=== PATIENT | male | born 1985 | race Two or more races ===

== ENCOUNTER 2016-10-30 22:48 | Inpatient (IN) | payer OTHER, MEDICAID ==
--- NOTE | 2016-10-30 23:04 | EDPHY ---
H & P Time Seen by Provider: 10/30/16 22:59 HPI/ROS: CC: Weakness, Shaking, Vomiting x 3 days HPI: This 31-year-old male with past medical history including developmental delay, seizures, psychosis and recent left ankle surgery presents to the emergency department tonight with his mother for complaints of weakness and shaking over the last 3 days and then vomiting tonight after dinner. On arrival the patient has a fever of 102.2 F. Mother states he does not often complain of much and on initial survey the patient denies headache, sore throat , ear pain, cough, chest pain, abdominal pain, constipation, diarrhea, or dysuria. However later he complains of burping and "heartburn" and he is noted to have a cough. 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 After the cast came off he has been in a walking boot. He also has a well-healing ulcer on the medial malleolus of the left ankle. Mother also states that he had an ultrasound of the left lower extremity about a week ago to rule out a deep vein thrombosis and it was negative. However she states they wanted to repeat the ultrasound again this week or next week. No known ill contacts. REVIEW OF SYSTEMS: Constitutional: As above. Eyes: No discharge. ENT: No sore throat. Respiratory: No shortness of breath. Cardiac: No chest pain, no palpitations. Gastrointestinal: +Epigastric pain. Genitourinary: +Dark urine, no dysuria. Musculoskeletal: No back pain. Skin: No rashes. Neurological: No headache. Past Medical/Surgical History: PMH: Includes Developmental Delay, Seizures, Psychosis PSH: Left Ankle Surgery FH: MGF Parkinson's Disease NKDA Meds: (Per Mother's recollection) Diazepam 2 mg at bedtime Clozapine 100 mg in the a.m. 125 mg at bedtime Haloperidol 10 mg 1 tablet in the a.m., 2 tablets at bedtime Aspirin 81 mg every a.m. and every p.m. Carbamazepine 200 mg every a.m. and every p.m. PCP: Dr. De La Cruz Psych: Dr Melton Social History: Former smoker; no current tobacco products; No ETOH; occasional marijuana Lives with mother, brother, MGF Smoking Status: Current every day smoker Physical Exam: General: Alert and oriented x 3, in mild discomfort, communication c/w developmental delay; Skin: Warm, slightly moist, healing ulcer on the left medial malleolus without red streaking or drainage HEENT: Normocephalic, atraumatic, pupils equally round reactive to light, extraocular muscles intact, tympanic membranes clear without erythema, oropharynx without erythema or exudate, mucosa slightly dry Neck: Supple, nontender, no JVD, no meningeal signs, trachea midline Cardiovascular: Tachycardia, no murmurs, gallops, or rubs; peripheral pulses intact x4 Pulmonary: Distant breath sounds, no rales, rhonchi or wheezing Abdomen: Obese, does not appear to have significant discomfort to palpation, no rebound, guarding, or rigidity Extremities: Left lower extremity walking boot removed, nonpitting edema to left lower extremity, healing ulcer on the left medial malleolus Neuro: CN II-XII grossly intact, LUE jerking/shaking movements, strength equal x 4, sensation and motor intact Constitutional: Initial Vital Signs Temperature (C) 102.2 F H 10/30/16 22:56 Heart Rate 106 H 10/30/16 22:56 Respiratory Rate 18 10/30/16 22:56 Blood Pressure 122/73 H 10/30/16 22:56 O2 Sat (%) 95 10/30/16 22:56 O2 Delivery Mode Room Air On my initial assessment the O2 Sat on RA was 93% JW Allergies/Adverse Reactions: No Known Allergies Allergy (Verified 03/17/15 11:17) Home Medications: Medication Instructions Recorded CARBAMAZEPINE 400 mg PO BID 01/07/09 Haldol 12/12/13 CLONAZEPAM 03/17/15 Medical Decision Making - Diagnostics EKG Interpretation: Normal sinus rhythm, heart rate 88, normal intervals, normal ST segments. Please note this EKG was after 2 L of fluid and tachycardia has resolved. Imaging Results: Imaging Impressions Chest X-Ray 10/30/16 23:21 Impression: 1. Peribronchial cuffing in the perihilar region bilaterally. Findings are nonspecific but can be seen with bronchitis, viral process, or reactive airways disease. CT angio of the chest and CT of the abdomen pelvis with contrast per verbal report by Dr. Car shows no PE, no pneumonia, contracted gallbladder, no signs of appendicitis, mild diverticulosis without diverticulitis. Please review the final dictated report when available. Imaging: Discussed imaging studies w/ call or contact centre manager Radiologist ED Course/Re-evaluation: The patient was seen and examined. Vital signs were reviewed and upon arrival the patient was febrile with a temp of 102.2 F, tachycardic with heart rate of 106, and his O2 to saturations were 93% on room air with a normal respiratory rate. He was given 1 g of Tylenol for his fever and was started on IV fluids. His CBC was elevated, comprehensive metabolic panel was fairly unremarkable, rapid strep was negative, total CPK was elevated at greater than 3000, lactic acid was elevated at 2.4, CRP was within normal range, carbamazepine level was not outside the therapeutic range. D-dimer was elevated. Troponin was within normal range and an EKG after IV fluids showed a normal sinus rhythm without acute abnormality. Urinalysis was normal without signs of infection. Chest x- ray showed mild katie bronchial cuffing. CT angio of the chest did not show a PE or pneumonia. An ultrasound of the left lower extremity may still be considered while in hospital (currently planned as an outpatient). CT with contrast of the abdomen and pelvis showed mild diverticulosis without diverticulitis or other acute intra-abdominal or intrapelvic abnormality. The CT scans results were per verbal report - please review final dictation when available. Patient received 2 L of IV fluids and a repeat lactic acid was 1.4. He also received Valium 2 mg IV push (he normally takes Valium at nighttime and I was hoping to alleviate some of the tremors he was having). He received Pepcid 20 mg IV push for his perceived heartburn. Despite a gram of Tylenol the patient's fever persisted at 102 F. He was given a dose of ibuprofen prior to admission. No obvious source for the patient's fever, weakness, shaking or vomiting were found. The symptoms could be due to a viral syndrome. However, with the patient's elevated CPK I thought it would be prudent to admit the patient for continued hydration and repeat of the CPK and chemistry panel to ensure resolution and rule out Neuroleptic Malignant syndrome. Discussed with hospitalist, Dr. Junaid Chavez. Differential Diagnosis: Differential diagnosis includes but is not limited to: Viral syndrome, strep pharyngitis, bronchitis or pneumonia, pericarditis, cholecystitis, appendicitis , diverticulitis, UTI or pyelonephritis, wound infection, PE, neuroleptics malignant syndrome, adverse medication reaction. - Data Points Laboratory Results: Laboratory Results 10/30/16 23:30 10/30/16 23:30 10/31/16 10/31/16 10/30/16 01:50 00:35 23:55 WBC RBC Hgb POC Hgb Hct POC Hct MCV MCH MCHC RDW Plt Count MPV Neut % (Auto) Lymph % (Auto) Cass % (Auto) Eos % (Auto) Baso % (Auto) Nucleat RBC Rel Count Absolute Neuts (auto) Absolute Lymphs (auto) Absolute Monos (auto) Absolute Eos (auto) Absolute Basos (auto) Absolute Nucleated RBC Immature Gran % Immature Gran # D-Dimer VBG Lactic Acid 1.4 mmol/L D mmol/L (0.7-2.1) POC Sodium Sodium POC Potassium Potassium POC Chloride Chloride Carbon Dioxide Anion Gap POC BUN BUN Creatinine POC Creatinine Estimated GFR Glucose POC Glucose Calcium Total Bilirubin Conjugated Bilirubin Unconjugated Bilirubin AST ALT Alkaline Phosphatase Creatine Kinase CK-MB (CK-2) Fraction CK-MB (CK-2) % Creatine Kinase Interp Troponin I C-Reactive Protein Total Protein Albumin Urine Color YELLOW Urine Appearance CLEAR Urine pH 5.5 (5.0-7.5) Ur Specific [place] 1.010 (1.002-1.030) Urine Protein TRACE H (NEGATIVE) Urine Ketones TRACE H (NEGATIVE) Urine Blood TRACE H (NEGATIVE) Urine Nitrate NEGATIVE (NEGATIVE) Urine Bilirubin NEGATIVE (NEGATIVE) Urine Urobilinogen 1.0 EU EU (0.2-1.0) Ur Leukocyte Esterase NEGATIVE (NEGATIVE) Urine RBC NONE SEEN /hpf /hpf (0-3) Urine WBC OCCASIONAL /hpf /hpf (0-3) Ur Epithelial Cells NONE SEEN /lpf /lpf (NONE-1+) Urine Mucus 3+ /lpf H /lpf (NONE-1+) Urine Glucose NEGATIVE (NEGATIVE) Carbamazepine Group A Strep Screen NEGATIVE (NEGATIVE) 10/30/16 10/30/16 10/30/16 23:50 23:40 23:31 WBC RBC Hgb POC Hgb 13.6 gm/dL L gm/dL (13.7-17.5) Hct POC Hct 40 % % (40-51) MCV MCH MCHC RDW Plt Count MPV Neut % (Auto) Lymph % (Auto) Cass % (Auto) Eos % (Auto) Baso % (Auto) Nucleat RBC Rel Count Absolute Neuts (auto) Absolute Lymphs (auto) Absolute Monos (auto) Absolute Eos (auto) Absolute Basos (auto) Absolute Nucleated RBC Immature Gran % Immature Gran # D-Dimer 0.98 ug/mLFEU H ug/mLFEU (0.00-0.50) VBG Lactic Acid 2.4 mmol/L H mmol/L (0.7-2.1) POC Sodium 133 mEq/L L mEq/L (134-144) Sodium POC Potassium 3.5 mEq/L mEq/L (3.3-5.0) Potassium POC Chloride 93 mEq/L L mEq/L (97-110) Chloride Carbon Dioxide Anion Gap POC BUN 14 mg/dL mg/dL (7-23) BUN Creatinine POC Creatinine 1.3 mg/dL mg/dL (0.7-1.3) Estimated GFR Glucose POC Glucose 130 mg/dL H mg/dL (70-100) Calcium Total Bilirubin Conjugated Bilirubin Unconjugated Bilirubin AST ALT Alkaline Phosphatase Creatine Kinase CK-MB (CK-2) Fraction CK-MB (CK-2) % Creatine Kinase Interp Troponin I C-Reactive Protein Total Protein Albumin Urine Color Urine Appearance Urine pH Ur Specific [place] Urine Protein Urine Ketones Urine Blood Urine Nitrate Urine Bilirubin Urine Urobilinogen Ur Leukocyte Esterase Urine RBC Urine WBC Ur Epithelial Cells Urine Mucus Urine Glucose Carbamazepine Group A Strep Screen 10/30/16 10/30/16 10/30/16 23:30 23:30 23:30 WBC 15.97 10^3/uL H 10^3/uL (3.80-9.50) RBC 4.04 10^6/uL L 10^6/uL (4.40-6.38) Hgb 12.8 g/dL L g/dL (13.7-17.5) POC Hgb Hct 36.2 % L % (40.0-51.0) POC Hct MCV 89.6 fL fL (81.5-99.8) MCH 31.7 pg pg (27.9-34.1) MCHC 35.4 g/dL g/dL (32.4-36.7) RDW 13.3 % % (11.5-15.2) Plt Count 345 10^3/uL 10^3/uL (150-400) MPV 9.5 fL fL (8.7-11.7) Neut % (Auto) 60.6 % % (39.3-74.2) Lymph % (Auto) 23.0 % % (15.0-45.0) Cass % (Auto) 15.5 % H % (4.5-13.0) Eos % (Auto) 0.1 % L % (0.6-7.6) Baso % (Auto) 0.4 % % (0.3-1.7) Nucleat RBC Rel Count 0.0 % % (0.0-0.2) Absolute Neuts (auto) 9.67 10^3/uL H 10^3/uL (1.70-6.50) Absolute Lymphs (auto) 3.68 10^3/uL H 10^3/uL (1.00-3.00) Absolute Monos (auto) 2.48 10^3/uL H 10^3/uL (0.30-0.80) Absolute Eos (auto) 0.01 10^3/uL L 10^3/uL (0.03-0.40) Absolute Basos (auto) 0.06 10^3/uL 10^3/uL (0.02-0.10) Absolute Nucleated RBC 0.00 10^3/uL 10^3/uL (0-0.01) Immature Gran % 0.4 % % (0.0-1.1) Immature Gran # 0.07 10^3/uL 10^3/uL (0.00-0.10) D-Dimer VBG Lactic Acid POC Sodium Sodium 131 mEq/L L mEq/L (134-144) POC Potassium Potassium 3.4 mEq/L L mEq/L (3.5-5.2) POC Chloride Chloride 95 mEq/L L mEq/L (97-110) Carbon Dioxide 23 mEq/l mEq/l (22-31) Anion Gap 13 mEq/L mEq/L (8-16) POC BUN BUN 13 mg/dL mg/dL (7-23) Creatinine 1.2 mg/dL mg/dL (0.7-1.3) POC Creatinine Estimated GFR > 60 Glucose 126 mg/dL H mg/dL (70-100) POC Glucose Calcium 8.5 mg/dL mg/dL (8.5-10.4) Total Bilirubin 0.6 mg/dL mg/dL (0.1-1.4) Conjugated Bilirubin 0.2 mg/dL mg/dL (0.0-0.5) Unconjugated Bilirubin 0.4 mg/dL mg/dL (0.0-1.1) AST 51 IU/L IU/L (17-59) ALT 33 IU/L IU/L (21-72) Alkaline Phosphatase 54 IU/L IU/L (38-126) Creatine Kinase 3250 IU/L H IU/L (0-224) CK-MB (CK-2) Fraction 20.50 ng/mL H ng/mL (0-4.55) CK-MB (CK-2) % 0.6 % % (0.0-4.0) Creatine Kinase Interp NEGATIVE (NEGATIVE) Troponin I < 0.012 ng/mL ng/mL (0-0.034) C-Reactive Protein 5.6 mg/L mg/L (<10.0) Total Protein 6.5 g/dL g/dL (6.3-8.2) Albumin 3.9 g/dL g/dL (3.5-5.0) Urine Color Urine Appearance Urine pH Ur Specific [place] Urine Protein Urine Ketones Urine Blood Urine Nitrate Urine Bilirubin Urine Urobilinogen Ur Leukocyte Esterase Urine RBC Urine WBC Ur Epithelial Cells Urine Mucus Urine Glucose Carbamazepine 7.6 ug/mL ug/mL (4.0-12.0) Group A Strep Screen Medications Given: Discontinued Medications Acetaminophen (Tylenol) 1,000 mg PO EDNOW ONE Stop: 10/30/16 23:24 Last Admin: 10/30/16 23:45 Dose: 1,000 mg Diazepam (Valium Injection) 2 mg IVP EDNOW ONE Stop: 10/31/16 00:46 Last Admin: 10/31/16 00:50 Dose: 2 mg Famotidine (Pepcid) 20 mg IVP EDNOW ONE Stop: 10/31/16 00:47 Last Admin: 10/31/16 00:50 Dose: 20 mg Sodium Chloride (Ns) 1,000 mls @ 0 mls/hr IV ONCE ONE; Wide Open PRN Reason: Protocol Stop: 10/30/16 23:17 Last Admin: 10/30/16 23:50 Dose: 1,000 mls Sodium Chloride (Ns) 1,000 mls @ 0 mls/hr IV ONCE ONE PRN Reason: Wide Open Stop: 10/31/16 00:43 Last Admin: 10/31/16 00:43 Dose: 1,000 mls Sodium Chloride (Ns) 1,000 mls @ 0 mls/hr IV ONCE ONE; Wide Open PRN Reason: Protocol Stop: 10/31/16 00:41 Last Admin: 10/31/16 02:50 Dose: 1,000 mls Ibuprofen (Motrin) 600 mg PO EDNOW ONE Stop: 10/31/16 02:07 Last Admin: 10/31/16 02:09 Dose: 600 mg Ondansetron HCl (Zofran) 4 mg IVP EDNOW ONE Stop: 10/31/16 00:01 Last Admin: 10/31/16 00:20 Dose: 4 mg Point of Care Test Results: 10/30/16 23:31 POC Sodium 133 L POC Potassium 3.5 POC Chloride 93 L POC BUN 14 POC Creatinine 1.3 POC Glucose 130 H Departure - Departure Disposition: [facility] Acute Clinical Impression: Fever and chills, Rhabdomyolysis, Vomiting Condition: Good
[2016-10-30] MEDS ORDERED: NS 1,000 ML IV ONE (23:16)
[2016-10-30] MEDS ORDERED: ACETAMINOPHEN 500 MG TAB PO ONE (23:23)
[2016-10-30 23:48] LABS: % IMMATURE GRANULYOCYTES 0.4 % (0.0-1.1); ABSOLUTE IMMATURE GRANULOCYTES 0.07 10^3/uL (0.00-0.10); ADD DIFF? NO; ADD MORPH? NO; ADD SCAN? NO; ATYPICAL LYMPHOCYTE FLAG 20 (0-99); FRAGMENT RBC FLAG 0 (0-99); HEMATOCRIT 36.2 % (40.0-51.0); HEMOGLOBIN 12.8 g/dL (13.7-17.5); LEFT SHIFT FLG 10 (0-99); LIPEMIA HEMOLYSIS FLAG 90 (0-99); MEAN CELL HEMOGLOBIN 31.7 pg (27.9-34.1); MEAN CELL HEMOGLOBIN CONCENTR. 35.4 g/dL (32.4-36.7); MEAN CELL VOLUME 89.6 fL (81.5-99.8); MEAN PLATELET VOLUME 9.5 fL (8.7-11.7); PLATELET CLUMPS FLAG 10 (0-99); PLATELET COUNT 345 10^3/uL (150-400); RED BLOOD CELL COUNT 4.04 10^6/uL (4.40-6.38); RED CELL DISTRIBUTION WIDTH 13.3 % (11.5-15.2)
[2016-10-31] LABS: ALANINE AMINOTRANSFERASE 33 IU/L (21-72); ALBUMIN 3.9 g/dL (3.5-5.0); ALKALINE PHOSPHATASE 54 IU/L (38-126); ANION GAP 13 mEq/L (8-16); ASPARTATE AMINOTRANSFERASE 51 IU/L (17-59); BILIRUBIN,TOTAL 0.6 mg/dL (0.1-1.4); BILIRUBIN-CONJUGATED 0.2 mg/dL (0.0-0.5); BILIRUBIN-UNCONJUGATED 0.4 mg/dL (0.0-1.1); CALCIUM 8.5 mg/dL (8.5-10.4); CARBON DIOXIDE 23 mEq/l (22-31); CHLORIDE 95 mEq/L (97-110); CREATININE 1.2 mg/dL (0.7-1.3); GLOMERULAR FILTRATION RATE > 60; GLUCOSE 126 mg/dL (70-100); POTASSIUM 3.4 mEq/L (3.5-5.2); SODIUM 131 mEq/L (134-144); TOTAL PROTEIN 6.5 g/dL (6.3-8.2)
[2016-10-31] MEDS ORDERED: ONDANSETRON 4 MG/2 ML VIAL IVP ONE
[2016-10-31 00:26] LABS: CK-MB INTERPRETATION NEGATIVE (NEGATIVE)
[2016-10-31] MEDS ORDERED: NS 1,000 ML IV ONE ×2 (00:42→05:36)
[2016-10-31 00:43] LABS: COLOR YELLOW; LEUKOCYTE ESTERASE,URINE NEGATIVE (NEGATIVE); NITRITE,URINE NEGATIVE (NEGATIVE); PH,URINE 5.5 (5.0-7.5)
[2016-10-31] MEDS ORDERED: DIAZEPAM 10 MG/2 ML SYR IVP ONE (00:45)
[2016-10-31] MEDS ORDERED: FAMOTIDINE 20 MG/2 ML SDV IVP ONE (00:46)
[2016-10-31] MEDS ORDERED: IOPAMIDOL (ISOVUE 370) 100 ML BTL IV ONE (00:51)
[2016-10-31 00:52] LABS: MUCUS 3+ /lpf (NONE-1+); WBC,URINE OCCASIONAL /hpf (0-3)
[2016-10-31 00:53] LABS: RBC,URINE NONE SEEN /hpf (0-3)
[2016-10-31] MEDS: NS 1,000 ML IV ONE ×2 (01:00→02:50)
--- NOTE | 2016-10-31 01:31 | CPEKG ---
Heart Rate: 88 RR Interval: 682 P-R Interval: 164 QRSD Interval: 78 QT Interval: 376 QTC Interval: 455 P [place]: 44 QRS [place]: 75 T Wave [place]: 34 EKG Severity - BORDERLINE ECG - EKG Impression: SINUS RHYTHM EKG Impression: Q WAVES IN III AND AVF EKG Impression: EARLY TRANSITION Electronically Signed By: Rome Gotti 01-Nov-2016 17:19:16
[2016-10-31 01:37] LABS: C-REACTIVE PROTEIN 5.6 mg/L (<10.0); TEGRETOL (CARBAMAZEPINE) 7.6 ug/mL (4.0-12.0)
[2016-10-31] MEDS ORDERED: IBUPROFEN 600 MG TAB PO ONE ×2 (01:54→02:06)
[2016-10-31] MEDS ORDERED: ONDANSETRON DISINTEGRATING 4 MG TAB PO PRN (05:36)
[2016-10-31] MEDS ORDERED: ONDANSETRON 4 MG/2 ML VIAL IVP PRN (05:36)
--- NOTE | 2016-10-31 05:46 | PDGENHP ---
History and Physical - Chief Complaint Fever - History of Present Illness Mr. Casey Tristan is a 31 yo M w/ developmental delay, seizure d/o, and schizophrenia admitted [place] [facility] with fever of unclear etiology. History obtain from mother (primary care-child caregiver private home) as patient was fairly sedated after dose of Valium IV given in ED prior to transport to [facility]. Mother reports mild, vague symptoms over the last 48 including irritability, sweating, and somewhat increased tremor on the R side of his body. 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 She denies presence of localizing symptoms, confusion, or seizure-like activity. At [facility], CT C/A/P and UA did not show a source of infection. Laboratory work up was notable for elevated CK, mild lactate elevation, and elevated d-dimer. History Information - Allergies/Home Medication List Allergies/Adverse Reactions: No Known Allergies Allergy (Verified 10/31/16 03:14) Home Medications: CARBAMAZEPINE 400 mg PO BID 01/07/09 [Last Taken 01/07/09 200] Haldol 12/12/13 [Last Taken Unknown] Aspirin EC 81 mg (*) 10/31/16 [Last Taken Unknown] Clozapine 10/31/16 [Last Taken Unknown] DIAZEPAM 10/31/16 [Last Taken Unknown] I have personally reviewed and updated: medical history, social history - Past Medical History seizures Additional medical history: Developmental delay, schizophrenia - Surgical History Reports: no pertinent surgical hx - Family History Positive for: diabetes type II, CAD - Social History Smoking Status: Current every day smoker Alcohol Use: None Drug Use: None Review of Systems ROS: 10pt was reviewed & negative except for what was stated in HPI & below Physical Exam Temp Pulse Resp BP Pulse Ox 36.3 C 77 20 110/59 L 89 L 10/31/16 04:24 10/31/16 04:24 10/31/16 04:24 10/31/16 04:24 10/31/16 04:24 Constitutional: no apparent distress (somnolent, opens eyes to voice), not in pain Eyes: PERRL, EOMI Ears, Nose, Mouth, Throat: moist mucous membranes, no oral mucosal ulcers Cardiovascular: regular rate and rhythym, no murmur, rub, or gallop Respiratory: no respiratory distress, clear to auscultation Gastrointestinal: normoactive bowel sounds, soft, non-tender abdomen Skin: warm, abrasion (Small wound on medial malleolus, no signs of infection) Musculoskeletal: no muscle tenderness, normal joint ROM, other (no rigidity) Neurologic: other (sedated, awakes to voice), No weakness Lab Data & Imaging Review 10/30/16 23:30 10/30/16 23:30 WBC 15.97 10^3/uL (3.80-9.50) H 10/30/16 23:30 RBC 4.04 10^6/uL (4.40-6.38) L 10/30/16 23:30 Hgb 12.8 g/dL (13.7-17.5) L 10/30/16 23:30 POC Hgb 13.6 gm/dL (13.7-17.5) L 10/30/16 23:31 Hct 36.2 % (40.0-51.0) L 10/30/16 23:30 POC Hct 40 % (40-51) 10/30/16 23:31 MCV 89.6 fL (81.5-99.8) 10/30/16 23:30 MCH 31.7 pg (27.9-34.1) 10/30/16 23:30 MCHC 35.4 g/dL (32.4-36.7) 10/30/16 23:30 RDW 13.3 % (11.5-15.2) 10/30/16 23:30 Plt Count 345 10^3/uL (150-400) 10/30/16 23:30 MPV 9.5 fL (8.7-11.7) 10/30/16 23:30 Neut % (Auto) 60.6 % (39.3-74.2) 10/30/16 23:30 Lymph % (Auto) 23.0 % (15.0-45.0) 10/30/16 23:30 White % (Auto) 15.5 % (4.5-13.0) H 10/30/16 23:30 Eos % (Auto) 0.1 % (0.6-7.6) L 10/30/16 23:30 Baso % (Auto) 0.4 % (0.3-1.7) 10/30/16 23:30 Nucleat RBC Rel Count 0.0 % (0.0-0.2) 10/30/16 23:30 Absolute Neuts (auto) 9.67 10^3/uL (1.70-6.50) H 10/30/16 23:30 Absolute Lymphs (auto) 3.68 10^3/uL (1.00-3.00) H 10/30/16 23:30 Absolute Monos (auto) 2.48 10^3/uL (0.30-0.80) H 10/30/16 23:30 Absolute Eos (auto) 0.01 10^3/uL (0.03-0.40) L 10/30/16 23:30 Absolute Basos (auto) 0.06 10^3/uL (0.02-0.10) 10/30/16 23:30 Absolute Nucleated RBC 0.00 10^3/uL (0-0.01) 10/30/16 23:30 Immature Gran % 0.4 % (0.0-1.1) 10/30/16 23:30 Immature Gran # 0.07 10^3/uL (0.00-0.10) 10/30/16 23:30 D-Dimer 0.98 ug/mLFEU (0.00-0.50) H 10/30/16 23:50 VBG Lactic Acid 1.4 mmol/L (0.7-2.1) D 10/31/16 01:50 POC Sodium 133 mEq/L (134-144) L 10/30/16 23:31 Sodium 131 mEq/L (134-144) L 10/30/16 23:30 POC Potassium 3.5 mEq/L (3.3-5.0) 10/30/16 23:31 Potassium 3.4 mEq/L (3.5-5.2) L 10/30/16 23:30 POC Chloride 93 mEq/L (97-110) L 10/30/16 23:31 Chloride 95 mEq/L (97-110) L 10/30/16 23:30 Carbon Dioxide 23 mEq/l (22-31) 10/30/16 23:30 Anion Gap 13 mEq/L (8-16) 10/30/16 23:30 POC BUN 14 mg/dL (7-23) 10/30/16 23:31 BUN 13 mg/dL (7-23) 10/30/16 23:30 Creatinine 1.2 mg/dL (0.7-1.3) 10/30/16 23:30 POC Creatinine 1.3 mg/dL (0.7-1.3) 10/30/16 23:31 Estimated GFR > 60 10/30/16 23:30 Glucose 126 mg/dL (70-100) H 10/30/16 23:30 POC Glucose 130 mg/dL (70-100) H 10/30/16 23:31 Calcium 8.5 mg/dL (8.5-10.4) 10/30/16 23:30 Total Bilirubin 0.6 mg/dL (0.1-1.4) 10/30/16 23:30 Conjugated Bilirubin 0.2 mg/dL (0.0-0.5) 10/30/16 23:30 Unconjugated Bilirubin 0.4 mg/dL (0.0-1.1) 10/30/16 23:30 AST 51 IU/L (17-59) 10/30/16 23:30 ALT 33 IU/L (21-72) 10/30/16 23:30 Alkaline Phosphatase 54 IU/L (38-126) 10/30/16 23:30 Creatine Kinase 3250 IU/L (0-224) H 10/30/16 23:30 CK-MB (CK-2) Fraction 20.50 ng/mL (0-4.55) H 10/30/16 23:30 CK-MB (CK-2) % 0.6 % (0.0-4.0) 10/30/16 23:30 Creatine Kinase Interp NEGATIVE (NEGATIVE) 10/30/16 23:30 Troponin I < 0.012 ng/mL (0-0.034) 10/30/16 23:30 C-Reactive Protein 5.6 mg/L (<10.0) 10/30/16 23:30 Total Protein 6.5 g/dL (6.3-8.2) 10/30/16 23:30 Albumin 3.9 g/dL (3.5-5.0) 10/30/16 23:30 Urine Color YELLOW 10/31/16 00:35 Urine Appearance CLEAR 10/31/16 00:35 Urine pH 5.5 (5.0-7.5) 10/31/16 00:35 Ur Specific [place] 1.010 (1.002-1.030) 10/31/16 00:35 Urine Protein TRACE (NEGATIVE) H 10/31/16 00:35 Urine Ketones TRACE (NEGATIVE) H 10/31/16 00:35 Urine Blood TRACE (NEGATIVE) H 10/31/16 00:35 Urine Nitrate NEGATIVE (NEGATIVE) 10/31/16 00:35 Urine Bilirubin NEGATIVE (NEGATIVE) 10/31/16 00:35 Urine Urobilinogen 1.0 EU (0.2-1.0) 10/31/16 00:35 Ur Leukocyte Esterase NEGATIVE (NEGATIVE) 10/31/16 00:35 Urine RBC NONE SEEN /hpf (0-3) 10/31/16 00:35 Urine WBC OCCASIONAL /hpf (0-3) 10/31/16 00:35 Ur Epithelial Cells NONE SEEN /lpf (NONE-1+) 10/31/16 00:35 Urine Mucus 3+ /lpf (NONE-1+) H 10/31/16 00:35 Urine Glucose NEGATIVE (NEGATIVE) 10/31/16 00:35 Carbamazepine 7.6 ug/mL (4.0-12.0) 10/30/16 23:30 Group A Strep Screen NEGATIVE (NEGATIVE) 10/30/16 23:55 Imaging Review: Discussed case with ED physician Sony, who stated radiologist reported on evidence of acute abnormality on CT chest angiogram or CT A/P. Visualized and Interpreted Chest x-ray results: Yes Chest X-Ray results: other (Katie-bronchial cuffing) Visualized and Interpreted EKG results: Yes EKG Interpretation: Positive for: normal sinsus rhythm Assessment & Plan Assessment: Mr. Casey Tristan is a 31 yo M w/ developmental delay, seizure d/o, and schizophrenia admitted from [facility] with fever and elevated CK likely of viral etiology. Plan: 1. Fever - Suspect viral etiology noting extensive chest and abdominal imaging without source as well as non-infectious UA. CXR did have katie-bronchial cuffing , which can be seen with bronchitis. Minimal symptoms but patient is a difficult historian due to developmental delay. Although unlikely, NMS is a distant possibility noting multiple antipsychotics, reports of increased tremor , and elevated CK. However, no rigidity of autonomic instability currently. - Will hold off on antibiotics currently, treat supportively with IVF, APAP, anti-emetics - Will ask psychiatry to see patient to discuss risk of NMS 2. Elevated CK - Possibly mild rhabdomyolysis, does have trace blood on UA. Currently receiving 4th liter of IVF. Will recheck CK to assure downtrending. 3. Lactic acidosis - Resolved s/p IVF, mild. 4. Schizophrenia - On haldol and clozapine as outpatient. Will ask psychiatry to see. 5. Seizure d/o - Per mother, usual seizures are generalized, tonic-clonic. Has not had one for years. On carbamazepine as outpatient. Diet - Regular Code - Full Ppx - LMWH Dispo - Admit to obs to assure fever improves without antibiotics
[2016-10-31] MEDS: ENOXAPARIN 40 MG/0.4 ML SYR SC SCH (10:03)
[2016-10-31] MEDS: carBAMazepine 200 MG TAB PO SCH ×2 (11:58→22:08)
[2016-10-31] MEDS: HALOPERIDOL 10 MG TAB PO SCH ×2 (11:58→22:09)
[2016-10-31] MEDS: ASPIRIN 81 MG CHEWABLE TAB PO SCH (11:59)
[2016-10-31] MEDS: cloZAPine 100 MG TAB PO SCH ×2 (11:59→22:08)
[2016-10-31] MEDS: NS 1,000 ML IV SCH (12:01)
[2016-10-31] MEDS: cefTRIAXone 2 GM in D5W 50 ML IV SCH (12:08)
[2016-10-31] MEDS: VANCOMYCIN 1.5 GM in D5W 250 ML IV SCH (14:17)
[2016-10-31 15:51] LABS: ANION GAP 10 mEq/L (8-16); CALCIUM 7.4 mg/dL (8.5-10.4); CARBON DIOXIDE 20 mEq/l (22-31); CHLORIDE 106 mEq/L (97-110); CREATININE 0.9 mg/dL (0.7-1.3); GLOMERULAR FILTRATION RATE > 60; GLUCOSE 142 mg/dL (70-100); MAGNESIUM 1.9 mg/dL (1.6-2.3); POTASSIUM 3.7 mEq/L (3.5-5.2); SODIUM 136 mEq/L (134-144)
[2016-10-31 16:37] LABS: CK-MB INTERPRETATION NEGATIVE (NEGATIVE)
--- NOTE | 2016-10-31 17:11 | HOSPPROG ---
Hospitalist Progress Note Assessment/Plan: 31 yo M with hx of DD, seizure d/o, schizophrenia admitted with fevers/SIRS and rhabdomyolysis # SIRS/sepsis: patient with recurrent fever since admission, Tmax of 39 with associated leukocytosis (with essentially normal diff), intermittent tachycardia but no clear infectious source--cxr/CTA chest without pneumonia or pleural effusion, abd CT without e/o infectious source--contracted GB, normal appendix, no diverticulitis. Urine w/o e/o infection. Blood cxs pending. Given associated confusion will get LP (had to delay until tomorrow as had LMWH today) . Did have recent ankle surgery but no e/o wound infection or overlying cellulitis on exam today. Starting empiric abx with ctx/vanc to cover possible meningitis as well possible early cellulitis/post op infection. Will ask ID to evaluate in am. # rhabdomyolysis: in setting of above and persistent rigors noted on exam. Differential including infection as above, also query NMS though patient able to ambulate and with relatively normal tone on exam which would be atypical for NMS--also patient has been on these medications for greater than 1 year, slightly unusual for NMS. Will request neuro consult, continue to trend CK, will increase IVF to 250ml NS/hr. # seizure d/o: continue op medications, per family has not had seizure in a long time, nothing by history to suggest recurrent seizure. Again neuro consulted # schizophrenia: with complications of EPS on current meds and family working on down titrating haldol. As above, considering NMS and if this were felt to be more likely per neuro, would need to dc antipsychotics. For now continue home meds. # IP status, will need > 48 hours stay for eval/mgmt of above Patient new to my care. Old records reviewed and summarized as above, further hx obtained from patients mother present at bedside. Subjective: continued to have fevers intermittently this am, patient somnolent, denies pain Objective: Vital Signs Temp Pulse Resp BP Pulse Ox 36.8 C 84 19 109/74 92 10/31/16 07:42 10/31/16 15:39 10/31/16 15:39 10/31/16 15:39 10/31/16 15:39 Laboratory Results 10/31/16 15:22 10/31/16 15:22 10/30/16 10/31/16 11/01/16 05:59 05:59 05:59 Intake Total 3000 Output Total 850 Balance 2150 awake alert mild distress anicteric op clear rrr no mrg cta b soft nt nd no cce warm dry well perfused oriented, rigors present, normal gait with PT - Time Spent With Patient Time Spent with Patient: greater than 35 minutes Time Spent with Patient: Greater than 35 minutes spent on this patients care, greater than 50% of time spent counseling, educating, and coordinating care regarding the above mentioned plan. ICD10 Worksheet Patient Problems: Problems Problem Status Onset Fever and chills Acute Rhabdomyolysis Acute Vomiting Acute
[2016-10-31] MEDS: ACETAMINOPHEN 325 MG TAB PO PRN ×2 (18:00→22:25)
--- NOTE | 2016-10-31 22:03 | GCON ---
[f rep st] CONSULTATION NEUROLOGY CONSULTATION REFERRING PHYSICIAN: Dr. Flores HISTORY: The patient is a 31-year-old gentleman, whom I am asked to see in neurologic consultation regarding a question of neuroleptic malignant syndrome. The patient was born at term, but his mothe r says there was early concern about his condition and was told initially he might have muscular dys trophy and then later cerebral palsy but has certainly always had developmental delay and over the y ears has always been in special education classes. She describes him as having slow development of his skills but started walking around age 2 and started to talk at that time as well, and she worked very hard with him with support and extra care. He has a history of seizures since relatively hedy y childhood but has not had a seizure for about 3 years, she says. It sounds as if the seizures hav e been generalized tonic-clonic seizures when they have occurred. He has been on anticonvulsant the rapy for most of his life and has been fairly stable with regard to that. His mental health issues changed a few years ago when he had what sounds like paranoid delusions and hallucinations and was e xtremely violent, his mother said, not toward her, but he would cause damage in the house and he wou ld strike objects with a shovel and could really act out. He went through a series of attempts to c ontrol this with a variety of antipsychotic medication, she says, and over the last year has come un chloe reasonably good control by using a combination of Haldol as high as 70 mg daily and Clozaril. Rajat curtis has developed some parkinsonism related to the antipsychotic use, and they have gradually been dec reasing the Haldol to a current dosage of 30 mg daily under the guidance of Dr. Browne. At [facility], he may have a little bit of tremulousness, but there were the changes in the last few days that prompted medical evaluation. Specifically, she says, he does not ever complain of anything, so it is very hard for to know anything about his mental state, but she did not notice any changes in part icular in his mental status, other than he looked a little bit angry. The patient cannot explain an y of this. He seemed to be tremulous and which she describes as a shaking or twitching in almost al l of his muscles. However, neither he nor his mother has described a rigidity or stiffness to his m uscles. She says she had no idea that he had any fever until he came to the hospital. He presented to the emergency department late in the evening on October 30. At that time, he had a temperature of 102.2. He has not had any significant hypertension since admission. There have been subsequent followup temperatures with the most recent temperature a few minutes ago, 101 orally. At 3 in the [facility], it was at 37.5 Celsius. The T-max was 39 Celsius when he came in and persisted over the nex t 2 hours with 1 drop to 37.8 and then back to 38.9 at 0130. There were then some axillary temperat ures taken earlier this morning at 36.3 and 36.8, respectively. This most recent temperature was ta dusty orally. Pulse rate has generally been from 60-90 range. Respiratory rate has been 14-20. Oxygen saturation has run around 90-94. This is on room air. He has not been complaining of cough. He has the eleazar ing that is bothering him. No recent trauma. His cell count when he came in was 15,000. It has not been repeated yet. Hematocrit of 36%. Plate lets 345,000. The differential was 60% neutrophils and 23% lymphocytes, monocytes 15%. D-dimer 0.9 8. Serum chemistry has shown sodium of 130-136, potassium 3.4 to 3.7, normal bicarbonate initially and then mildly reduced at 20 most recently. BUN and creatinine have been normal. Blood glucose wi th mild elevations at 126-140. Calcium a little low at 7.4, phosphorus 2.3, magnesium 1.9. Normal liver enzymes with AST of 51, ALT of 33, alkaline phosphatase 54. Total CK of 3252 at 2330 yesterda y. C-reactive protein normal. Urinalysis unremarkable. Carbamazepine level 7.6. Strep negative. PAST MEDICAL HISTORY: As outlined above. He has also had recent treatment for left leg pain. FAMILY HISTORY: Notable for type 2 diabetes and coronary disease, and his grandfather has advanced Parkinson disease. The patient has no history of drug or alcohol abuse and has been smoking cigaret uzair on a daily basis. HOME MEDICATIONS: Clozaril 100 mg daily and 125 mg at night, Tegretol 100 mg b.i.d., aspirin 81 mg daily, Valium 2 mg at night, Haldol 20 mg in the evening and 10 mg during the day. Since admission, he is continuing on his regular medications but also has been started on ceftriaxone and vancomycin . ALLERGIES: No known drug allergies. PHYSICAL EXAMINATION: GENERAL: He is overweight, sitting in his chair, in no acute distress. EYES : Clear. NECK: Supple with no bruits or masses. CARDIAC: Regular rate and rhythm. No murmur. EXTREMITIES: No cyanosis or edema. NEURO: He is flat in his affect and awake with mild lethargy, but his mother says this is about his baseline. He speaks with a very flat, monotone voice and does not give elaboration to questions and tends to give 1 or 2-word answers and does better when he is given direct questions. He cannot elaborate with open-ended questions about how he is feeling. Thi s again is his apparent baseline. Careful examination of the upper and lower extremities reveals no rigidity. He is tremulous, and that seems to be affecting predominantly the upper extremities even toward his chest and less evident in the lower extremities. His muscle power is not significantly reduced. Sensation is preserved. Reflexes are 1+. IMPRESSION: The patient has a history of relatively recent onset of schizophrenia and use of high p otency antipsychotics as well as atypical antipsychotic of Clozaril needed to control severe problem s with his hallucinations, and this is now under the best control his mother says he has ever had. He has had some drug-induced parkinsonism, from her description. He is presenting now with some alda mulousness and fever of unknown source. He does not have rigidity, and he does not have much of an alteration in his baseline mental state, which seems to be a reliable assessment from his mother. B ecause of the lack of the rigidity or clear significant change in his mental state, despite having s ome of the fever and tremulousness, it seems unlikely that he has neuroleptic malignant syndrome. H e is at risk with the use of these medications and being a male, but I think the downside to stoppin g these medications, which would be the treatment of choice for the condition if it were present, is not worth that risk right now. I had a detailed discussion with the patient's mother regarding thi s, and she agrees that she would really prefer the medicines not be stopped without more strong evid ence of neuroleptic malignant syndrome. The supportive care with hydration and monitoring is approp riate. He still has some fever, and this needs to be monitored, as well as following up on the CK. I am not sure why he has developed a tremulousness. It may also be somewhat related to his medicat ion. This does not look consistent with a tardive dyskinesia. With the lowering of the Haldol, I w onder whether that might be unmasking some effects of the neuroleptic. This is, of course, rather t candace to know for sure. The likelihood of a primary HAND CROWN POUNCER infection seems relatively low, but given s ome of the uncertainties in being able to evaluate him, I believe doing a lumbar puncture remains re asonable. There is a low enough suspicion, however, that I would not put him on any other medicatio ns beyond the vancomycin and ceftriaxone at this point, which would protect against bacterial infect ions. The likelihood of herpes encephalitis is considered low. I will continue to monitor his progress with you. The total unit time today was 75 minutes. Copy requested to: Dr. Browne Psychiatry /[id number]/MODL
[2016-10-31] MEDS: DIAZEPAM 2 MG TAB PO SCH (22:08)
[2016-10-31] MEDS: cloZAPine 25 MG TAB PO SCH (22:09)
[2016-11-01] MEDS: CALCIUM CARBONATE 500 MG CHEWABLE TAB PO PRN ×3 (00:01→21:12)
[2016-11-01] MEDS: cefTRIAXone 2 GM in D5W 50 ML IV SCH ×2 (00:03→12:03)
[2016-11-01] MEDS: NS 1,000 ML IV SCH ×3 (00:55→22:50)
[2016-11-01] MEDS: VANCOMYCIN 1.5 GM in D5W 250 ML IV SCH ×2 (00:55→14:19)
[2016-11-01] MEDS: ACETAMINOPHEN 325 MG TAB PO PRN ×3 (04:17→22:50)
[2016-11-01 04:54] LABS: % IMMATURE GRANULYOCYTES 0.4 % (0.0-1.1); ABSOLUTE IMMATURE GRANULOCYTES 0.05 10^3/uL (0.00-0.10); ADD DIFF? NO; ADD MORPH? NO; ADD SCAN? NO; ATYPICAL LYMPHOCYTE FLAG 30 (0-99); FRAGMENT RBC FLAG 0 (0-99); HEMATOCRIT 34.4 % (40.0-51.0); HEMOGLOBIN 11.8 g/dL (13.7-17.5); LEFT SHIFT FLG 20 (0-99); LIPEMIA HEMOLYSIS FLAG 90 (0-99); MEAN CELL HEMOGLOBIN 31.7 pg (27.9-34.1); MEAN CELL HEMOGLOBIN CONCENTR. 34.3 g/dL (32.4-36.7); MEAN CELL VOLUME 92.5 fL (81.5-99.8); MEAN PLATELET VOLUME 9.4 fL (8.7-11.7); PLATELET CLUMPS FLAG 0 (0-99); PLATELET COUNT 288 10^3/uL (150-400); RED BLOOD CELL COUNT 3.72 10^6/uL (4.40-6.38); RED CELL DISTRIBUTION WIDTH 13.5 % (11.5-15.2)
[2016-11-01 05:09] LABS: INR 1.11 (0.83-1.16); PROTIME(PATIENT) 14.2 SEC (12.0-15.0)
[2016-11-01] MEDS ORDERED: LIDOCAINE 1% 300 MG/30 ML SDV ONE (08:58)
[2016-11-01 09:02] LABS: ALANINE AMINOTRANSFERASE 24 IU/L (21-72); ALBUMIN 2.7 g/dL (3.5-5.0); ALKALINE PHOSPHATASE 42 IU/L (38-126); ANION GAP 8 mEq/L (8-16); ASPARTATE AMINOTRANSFERASE 58 IU/L (17-59); BILIRUBIN,TOTAL 0.6 mg/dL (0.1-1.4); BILIRUBIN-CONJUGATED 0.3 mg/dL (0.0-0.5); BILIRUBIN-UNCONJUGATED 0.3 mg/dL (0.0-1.1); CALCIUM 7.4 mg/dL (8.5-10.4); CARBON DIOXIDE 19 mEq/l (22-31); CHLORIDE 111 mEq/L (97-110); CREATININE 0.8 mg/dL (0.7-1.3); GLOMERULAR FILTRATION RATE > 60; GLUCOSE 92 mg/dL (70-100); MAGNESIUM 1.9 mg/dL (1.6-2.3); POTASSIUM 4.2 mEq/L (3.5-5.2); SODIUM 138 mEq/L (134-144); TOTAL PROTEIN 5.1 g/dL (6.3-8.2)
[2016-11-01 09:26] LABS: CK-MB INTERPRETATION NEGATIVE (NEGATIVE)
[2016-11-01] MEDS: carBAMazepine 200 MG TAB PO SCH ×2 (10:30→21:05)
[2016-11-01] MEDS: ASPIRIN 81 MG CHEWABLE TAB PO SCH (10:30)
[2016-11-01] MEDS: cloZAPine 100 MG TAB PO SCH ×2 (10:30→21:05)
[2016-11-01] MEDS: HALOPERIDOL 10 MG TAB PO SCH ×2 (10:31→21:06)
[2016-11-01 10:32] LABS: PROTEIN, CSF 60 mg/dL (12-60)
[2016-11-01 10:33] LABS: CSF APPEARANCE CLEAR (CLEAR); CSF COLOR COLORLESS (COLORLESS)
[2016-11-01 10:45] LABS: WBC, CSF 275 /mm3 (0-5)
--- NOTE | 2016-11-01 14:38 | HOSPPROG ---
Hospitalist Progress Note Assessment/Plan: 31 yo M with hx of DD, seizure d/o, schizophrenia admitted with fevers/SIRS and rhabdomyolysis found to be 2/2 meningitis # meningitis: LP with elevated WBC as well as RBC c/w acute meningitis. Currently being treated with ctx/vanco but discussed with ID and suspicion higher for viral meningitis, particularly west [place]ile, and likely will dc abx and begin acyclovir. Appreciate ID/neuro consultations and recommendations reviewed. # sepsis: continued fever overnight and today in setting of above, WBC trending down slightly, HD stable, abx as above but likely dc abx and # rhabdomyolysis: in setting of above and rigors versus choreiform tremors, ck trending down, continue IVF, renal function stable # seizure d/o: continue op medications, per family has not had seizure in a long time, nothing by history to suggest recurrent seizure. Again neuro consulted # schizophrenia: with complications of EPS and Parkinsonian sxs on current medication that include clozaril and haldol but otherwise psychosis improved significantly. Reviewed care plan with Genesis Bermudez who has discussed with psychiatry and plan for now to continue current medications. # IP status, will need > 48 hours stay for eval/mgmt of above Reviewed care plan with ID and patients mother present at bedside. Subjective: no significant overnight events, fevers continued overnight and again today, shaking/tremors slightly decreased today Objective: Vital Signs Temp Pulse Resp BP Pulse Ox 37.6 C 79 18 111/70 95 11/01/16 12:00 11/01/16 12:00 11/01/16 12:00 11/01/16 12:00 11/01/16 12:00 Microbiology 11/01/16 09:51 Gram Stain - Final Cerebral Spinal Fluid Laboratory Results 11/01/16 04:30 11/01/16 08:20 10/31/16 11/01/16 11/02/16 05:59 05:59 05:59 Intake Total 1100 500 Output Total 2450 200 Balance -1350 300 PT 14.2 SEC (12.0-15.0) 11/01/16 04:30 INR 1.11 (0.83-1.16) 11/01/16 04:30 awake alert mild distress anicteric op clear rrr no mrg cta b soft nt nd no cce warm dry well perfused oriented, tremor decreased ICD10 Worksheet Patient Problems: Problems Problem Status Onset Fever and chills Acute Rhabdomyolysis Acute Vomiting Acute
--- NOTE | 2016-11-01 15:03 | NEUROPROG ---
Assessment: Pt stable clinically but appears to have viral meningitis most likely with encephalitis possible as well, but fully covered with Abx and Acyclovir with PCR and cultures pending. NMS not suspect at this point. Subjective: Pt not shaking this am and has no complaints but still high fevers during the night. Objective: Vital Signs Temp Pulse Resp BP Pulse Ox 37.6 C 79 18 111/70 95 11/01/16 12:00 11/01/16 12:00 11/01/16 12:00 11/01/16 12:00 11/01/16 12:00 Microbiology 11/01/16 09:51 Gram Stain - Final Cerebral Spinal Fluid Laboratory Results 11/01/16 04:30 11/01/16 08:20 10/31/16 11/01/16 11/02/16 05:59 05:59 05:59 Intake Total 1100 500 Output Total 2450 200 Balance -1350 300 PT 14.2 SEC (12.0-15.0) 11/01/16 04:30 INR 1.11 (0.83-1.16) 11/01/16 04:30 Alert but very flat and limited ability to express himself, which is his baseline. Elevated CSF WBC and RBC with mainly lymphs. Studies pending Allergies/Adverse Reactions: No Known Allergies Allergy (Verified 10/31/16 03:14)
[2016-11-01] MEDS: ACYCLOVIR 900 MG in D5W 250 ML IV SCH ×2 (15:40→22:50)
--- NOTE | 2016-11-01 19:27 | GCON ---
[f rep st] CONSULTATION INFECTIOUS DISEASE CONSULTATION DATE OF CONSULTATION: 11/01/2016 REFERRING PHYSICIAN: Vicki Flores MD REASON FOR CONSULTATION: Fever and altered mental status. HISTORY OF PRESENT ILLNESS: A 31-year-old male with a past medical history with a past medical history of developmental delay, seizures, and recent left ankle injury, presented to the emergency room on 10/30/2016 after he developed left hand tremulousness, and abnormal facial expressions, and stumbling on the day of admission. It was also noted that he was gagging with eating with subsequent vomiting. On arrival to the emergency room, the patient was found to be febrile to 102. The patient is a difficult historian, but generally denies any localizing symptoms, but does admit to neck pain today, but specifically denies headache. 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 Unknown how much the patient gets mosquito bites. The patient does have a girlfriend, but they are not sexually active. There have been no recent medication changes. The last medication changes were in May, where carbamazepine was increased. The patient does not have any pets, has had no travel, and has not smoked since April of 2016. The patient was initially admitted to the hospital, and was known to have rhabdomyolysis, and Neurology evaluated for neuroleptics malignant syndrome. In addition, the patient underwent a lumbar puncture, which CSF showed a WBC of 275, with 30% neutrophils, 52% lymphocytes, 18% monocytes, glucose of 53, total protein of 60 , and a red cell count of 231. The patient was empirically started prior to lumbar puncture on high-dose vancomycin and ceftriaxone for possibility of bacterial meningitis. REVIEW OF SYSTEMS: A complete 10-point review of systems was performed, and is negative except as mentioned in the HPI or below. Respiratory, the patient does describe a cough that is nonproductive. No sore throat. No rash. No myalgias. He does have neck pain. No headache. No diarrhea. He does have decreased appetite. PAST MEDICAL HISTORY: Developmental delay, seizures. PAST SURGICAL HISTORY: L ankle surgery SocHx: tobacco - quit 04/2016. No EtOH. Lives with his mother. No international travel. FAMILY HISTORY: Positive for Parkinson's disease. ALLERGIES: NKDA. MEDICATIONS: Ceftriaxone 2 g IV q.12, started 10/31. Vancomycin 1.5 g IV q.12 , started 10/31. He is also on Tums as needed. Tegretol 100 mg twice a day. Clozaril 100 mg twice daily and 25 mg at night. Valium 2 mg at night. Lovenox subcu. Haldol 30 mg daily. Zofran as needed. Normal saline. PHYSICAL EXAMINATION: VITAL SIGNS: Blood pressure 127/76, heart rate 94, respiratory rate 18, saturation 99% on room air, temperature 38.2, T-max is 38.4. GENERAL: This is a pleasant relatively nontoxic appearing male with minimal interaction. He does answer questions appropriately and is oriented. HEENT: Extraocular muscles were intact. No conjunctival hemorrhages. Oropharynx fair dentition. Dry mucous membranes. NECK: Mild meningismus. CARDIOVASCULAR: Regular rate and rhythm. No murmurs. CHEST: Clear to auscultation bilaterally. ABDOMEN: Obese, soft, nontender. Bowel sounds are present. EXTREMITIES: No clubbing, cyanosis, or edema. He has mild swelling in his left ankle that is at baseline since his surgery. NEUROLOGIC: He was moving all 4 extremities. Motor was intact. No cranial nerve abnormalities were detected. The patient was noted to have tremulousness of his lower jaw, his bilateral arms, but not choreiform movements. SKIN: No rashes. LABORATORY: White count 13.6, hematocrit 34, platelets of 288, 56% neutrophils , 27% lymphocytes, creatinine 0.8. AST 58, ALT 24. CK 2,731 down from 4,200. Albumin 2.7, protein 5.1. Blood cultures on 10/30 and 10/31 are no growth. CSF Gram stain showed 1+ PMNs, 2+ mononuclear cells, no organisms. Carbamazepine level was 7.6, which is in the therapeutic range. Group A strep swab was negative. Urinalysis was negative. Initial lactate 10.4, INR 1.1. ASSESSMENT/PLAN: A 31-year-old male with developmental delay, on chronic antiseizure medicines/mood stabilizer, who presents with new neurologic findings consistent with tremulousness, stumbling, and possibly decreased interaction, and was found to be febrile. Lumbar puncture revealed lymphocytic meningitis. Suspect viral etiology such as enterovirus, West Nile, or herpes viruses including varicella. Also could consider drug-induced meningitis, but without recent medication changes this seems unlikely. RECOMMENDATIONS: 1. Would discontinue vancomycin and ceftriaxone. 2. Would initiate acyclovir, although patient with no history of chickenpox nor perioral HSV. Slight increase suspicion for herpes viruses with slightly elevated RBCs on CSF cell count. 3. We will consider further SPRING UPHOLSTERER imaging, dependent on clinical course. 4. Neurologic findings are particularly suggestive of West Nile virus. We reviewed with family that there is no treatment for this. We will wait for further studies. 5. Studies sent for WNV, HSV, VZV, CMV, EBV, Resp viral nasal PCR, CSF cultures Thank you for this consultation. We will continue to follow on a daily basis. /[id number]/MODL MTDD
[2016-11-01] MEDS: DIAZEPAM 2 MG TAB PO SCH (21:05)
[2016-11-01] MEDS: cloZAPine 25 MG TAB PO SCH (21:06)
[2016-11-02] MEDS: ACETAMINOPHEN 325 MG TAB PO PRN (03:30)
[2016-11-02] MEDS: NS 1,000 ML IV SCH ×2 (03:31→06:01)
[2016-11-02 03:52] LABS: % IMMATURE GRANULYOCYTES 0.3 % (0.0-1.1); ABSOLUTE IMMATURE GRANULOCYTES 0.03 10^3/uL (0.00-0.10); ADD DIFF? NO; ADD MORPH? NO; ADD SCAN? NO; ATYPICAL LYMPHOCYTE FLAG 40 (0-99); FRAGMENT RBC FLAG 0 (0-99); HEMATOCRIT 33.4 % (40.0-51.0); HEMOGLOBIN 11.4 g/dL (13.7-17.5); LEFT SHIFT FLG 10 (0-99); LIPEMIA HEMOLYSIS FLAG 90 (0-99); MEAN CELL HEMOGLOBIN 31.7 pg (27.9-34.1); MEAN CELL HEMOGLOBIN CONCENTR. 34.1 g/dL (32.4-36.7); MEAN CELL VOLUME 92.8 fL (81.5-99.8); MEAN PLATELET VOLUME 9.9 fL (8.7-11.7); PLATELET CLUMPS FLAG 0 (0-99); PLATELET COUNT 300 10^3/uL (150-400); RED CELL DISTRIBUTION WIDTH 13.5 % (11.5-15.2)
[2016-11-02 04:36] LABS: ANION GAP 5 mEq/L (8-16); CARBON DIOXIDE 22 mEq/l (22-31); CHLORIDE 107 mEq/L (97-110); CREATININE 0.8 mg/dL (0.7-1.3); GLOMERULAR FILTRATION RATE > 60; GLUCOSE 95 mg/dL (70-100); POTASSIUM 3.9 mEq/L (3.5-5.2); SODIUM 134 mEq/L (134-144)
[2016-11-02 05:12] LABS: CK-MB INTERPRETATION NEGATIVE (NEGATIVE); CREATINE KINASE-MB FRACTION 1.14 ng/mL (0-3.19)
[2016-11-02] MEDS: ACYCLOVIR 900 MG in D5W 250 ML IV SCH ×3 (06:00→21:30)
--- NOTE | 2016-11-02 09:00 | PCMIDPN ---
Assessment/Plan: # lymphocytic meningitis, Suspect viral therefore ongoing fever not entirely unexpected. Associated leukocytosis with increased proportion of monocytes. Normal LFTs. patient still remains quite tremulous of the upper extremities today but mentation within normal limits. Considerations still include enterovirus, West Nile, herpes viruses. Could also consider EBV, CMV -- Obtain respiratory virus PCR with hopes of identifying virus sooner -- continue on acyclovir until CSF data return -- discuss with primary team whether MRI brain will help sort out etiology -- creatinine is normal today, continue daily creatinine is while on high-dose acyclovir and avoid other renal toxic agents --additional serologies added on today, nasal viral PCR was not collected and was re-requested today # rhabdomyolysis suspect related to viral syndrome med acyclovir 900 mg IV Q 8, # 1, creatinine=0.8 Subjective: patient denies headache, neck pain, abdominal pain. He has a persistent nonproductive cough. Denies abdominal pain. Reports fatigue but sleeping well. Mom reports that patient was talking in his sleep. Objective: Vital Signs Temp Pulse Resp BP Pulse Ox 38.4 C H 79 18 126/64 H 90 L 11/02/16 08:00 11/02/16 08:00 11/02/16 08:00 11/02/16 08:00 11/02/16 08:00 Microbiology 11/01/16 09:51 Gram Stain - Final Cerebral Spinal Fluid Laboratory Results 11/02/16 03:15 11/02/16 03:15 11/01/16 11/02/16 11/03/16 05:59 05:59 05:59 Intake Total 1100 8150 Output Total 2450 2550 Balance -1350 5600 C-Reactive Protein 5.6 mg/L (<10.0) 10/30/16 23:30 - Physical Exam General Appearance: alert EENT: No thrush Respiratory: lungs clear, accessory muscle use Neck: supple Cardiac/Chest: regular rate, rhythm Extremities: pedal edema ( left ankle) Abdomen: non-tender, soft Skin: diaphoresis, No jaundice, No rash Neuro/Psych: no motor/sensory deficits, alert, oriented x 3, other ( upper extremity fine tremor, worse with intention), No sensory deficit, No cognition abnormalities - Time Spent With Patient Time Spent with Patient: greater than 35 minutes Time Spent with Patient: Greater than 35 minutes spent on this patients care, greater than 50% of time spent counseling, educating, and coordinating care regarding the above mentioned plan. ICD10 Worksheet Patient Problems: Problems Problem Status Onset Fever and chills Acute Rhabdomyolysis Acute Vomiting Acute
[2016-11-02] MEDS: carBAMazepine 200 MG TAB PO SCH ×2 (10:14→21:23)
[2016-11-02] MEDS: HALOPERIDOL 10 MG TAB PO SCH ×2 (10:14→21:24)
[2016-11-02] MEDS: ASPIRIN 81 MG CHEWABLE TAB PO SCH (10:14)
[2016-11-02] MEDS: ENOXAPARIN 40 MG/0.4 ML SYR SC SCH (10:15)
[2016-11-02] MEDS: cloZAPine 100 MG TAB PO SCH ×2 (10:15→21:24)
[2016-11-02] MEDS ORDERED: ACYCLOVIR 900 MG in D5W 250 ML IV SCH (14:00)
--- NOTE | 2016-11-02 18:25 | HOSPPROG ---
Hospitalist Progress Note Assessment/Plan: 31 yo M with hx of DD, seizure d/o, schizophrenia admitted with fevers/SIRS and rhabdomyolysis found to be 2/2 meningitis # meningitis: LP with elevated WBC as well as RBC c/w acute viral meningitis. Off of abx given that this is not c/w bacterial meningitis, on acyclovir for now pending csf PCR. Continues to fever all day today as would be expected, continue to monitor fever curve. Tremors significantly improved since admission. # sepsis: continued fever as above, wbc trending down, HD stable # rhabdomyolysis: in setting of above and rigors versus choreiform tremors, ck trending down, continue IVF but will decrease rate, renal function stable # diarrhea: new today, given recent abx will check c diff # seizure d/o: continue op medications, per family has not had seizure in a long time, nothing by history to suggest recurrent seizure. Again neuro consulted # schizophrenia: with complications of EPS and Parkinsonian sxs on current medication that include clozaril and haldol but otherwise psychosis improved significantly. Reviewed care plan with Genesis Bermudez who has discussed with psychiatry and plan for now to continue current medications. # IP status, will need > 48 hours stay for eval/mgmt of above Reviewed care plan with ID and patients mother present at bedside. Subjective: no significant overnight events, patient has had some diarrhea today but otherwise is feeling better, still fevering Objective: Vital Signs Temp Pulse Resp BP Pulse Ox 38.4 C H 88 18 113/77 95 11/02/16 16:00 11/02/16 16:00 11/02/16 16:00 11/02/16 16:00 11/02/16 16:00 Microbiology 11/01/16 09:51 Gram Stain - Final Cerebral Spinal Fluid Laboratory Results 11/02/16 03:15 11/02/16 03:15 11/01/16 11/02/16 11/03/16 05:59 05:59 05:59 Intake Total 1100 8150 1200 Output Total 2450 2550 940 Balance -1350 5600 260 PT 14.2 SEC (12.0-15.0) 11/01/16 04:30 INR 1.11 (0.83-1.16) 11/01/16 04:30 awake alert mild distress anicteric op clear rrr no mrg cta b soft nt nd no cce warm dry well perfused oriented, tremor decreased ICD10 Worksheet Patient Problems: Problems Problem Status Onset Fever and chills Acute Rhabdomyolysis Acute Vomiting Acute
[2016-11-02] MEDS: CALCIUM CARBONATE 500 MG CHEWABLE TAB PO PRN (21:22)
[2016-11-02] MEDS: DIAZEPAM 2 MG TAB PO SCH (21:23)
[2016-11-02 21:37] LABS: ENTEROVIRUS BY PCR Negative (Negative); SPECIMEN SOURCE ENTEROVIRUS CSF
[2016-11-02 22:25] LABS: HSV 1 PCR, CSF Negative (Negative); HSV 2 PCR, CSF Negative (Negative)
[2016-11-03] MEDS: NS 1,000 ML IV SCH ×2 (03:38→19:34)
[2016-11-03] MEDS: cloZAPine 25 MG TAB PO SCH ×2 (03:39→21:05)
[2016-11-03 05:02] LABS: % IMMATURE GRANULYOCYTES 0.3 % (0.0-1.1); ABSOLUTE IMMATURE GRANULOCYTES 0.03 10^3/uL (0.00-0.10); ADD DIFF? NO; ADD MORPH? NO; ADD SCAN? NO; ATYPICAL LYMPHOCYTE FLAG 70 (0-99); FRAGMENT RBC FLAG 0 (0-99); HEMATOCRIT 33.7 % (40.0-51.0); HEMOGLOBIN 11.7 g/dL (13.7-17.5); LEFT SHIFT FLG 0 (0-99); LIPEMIA HEMOLYSIS FLAG 90 (0-99); MEAN CELL HEMOGLOBIN 31.8 pg (27.9-34.1); MEAN CELL HEMOGLOBIN CONCENTR. 34.7 g/dL (32.4-36.7); MEAN CELL VOLUME 91.6 fL (81.5-99.8); MEAN PLATELET VOLUME 10.2 fL (8.7-11.7); PLATELET CLUMPS FLAG 0 (0-99); PLATELET COUNT 313 10^3/uL (150-400); RED BLOOD CELL COUNT 3.68 10^6/uL (4.40-6.38); RED CELL DISTRIBUTION WIDTH 13.7 % (11.5-15.2)
[2016-11-03 05:22] LABS: ANION GAP 13 mEq/L (8-16); CALCIUM 8.3 mg/dL (8.5-10.4); CARBON DIOXIDE 19 mEq/l (22-31); CHLORIDE 105 mEq/L (97-110); CREATININE 0.7 mg/dL (0.7-1.3); GLOMERULAR FILTRATION RATE > 60; GLUCOSE 98 mg/dL (70-100); POTASSIUM 3.9 mEq/L (3.5-5.2); SODIUM 137 mEq/L (134-144)
[2016-11-03] MEDS: ACYCLOVIR 900 MG in D5W 250 ML IV SCH (05:33)
[2016-11-03 05:39] LABS: CK-MB INTERPRETATION NEGATIVE (NEGATIVE); CREATINE KINASE-MB FRACTION 1.17 ng/mL (0-3.19)
[2016-11-03] MEDS: ASPIRIN 81 MG CHEWABLE TAB PO SCH (10:10)
[2016-11-03] MEDS: carBAMazepine 200 MG TAB PO SCH ×2 (10:10→21:04)
[2016-11-03] MEDS: HALOPERIDOL 10 MG TAB PO SCH ×2 (10:11→21:03)
[2016-11-03] MEDS: cloZAPine 100 MG TAB PO SCH ×2 (10:11→21:05)
[2016-11-03] MEDS: ENOXAPARIN 40 MG/0.4 ML SYR SC SCH (10:11)
--- NOTE | 2016-11-03 10:57 | PCMIDPN ---
Assessment/Plan: Assessment/Plan: 1. Lymphocytic Meningitis: - Uncertain etiology, likely viral -Following studies so far negative: CSF HSV DNA, Enterovirus, respiratory PCR, blood cx, CSF cultures no growth at 48 hours. -Pending studies: WNV, CMV, EBV -Will d/c acyclovir - wbc trending down, creatinine and LFT stable. -Consider brain imaging especially if work up negative. -Reviewed results and plan of care with MOm and patient. MEds acyclovir---d/c today Subjective: Still with intermittent spiking temps. Sleepy but does wake up and follow commands. Still with headache and mild neck pain. no neck stiffness. Denies sob , abd pain or diarrhea. Mom at bedside. Objective: Vital Signs Temp Pulse Resp BP Pulse Ox 37.7 C 88 16 105/54 L 93 11/03/16 08:00 11/03/16 08:00 11/03/16 08:00 11/03/16 08:00 11/03/16 08:00 Microbiology 11/01/16 09:51 Gram Stain - Final Cerebral Spinal Fluid 11/02/16 17:05 Respiratory Panel (PCR) - Final Nasal, Sinus - Swab No Organism Detected Laboratory Results 11/03/16 04:15 11/03/16 04:15 11/02/16 11/03/16 11/04/16 05:59 05:59 05:59 Intake Total 8150 3368 Output Total 2550 1340 Balance 5600 2028 C-Reactive Protein 5.6 mg/L (<10.0) 10/30/16 23:30 - Physical Exam General Appearance: other (sleepy but does wake up to follow commands. in no distress.) EENT: pharynx normal Respiratory: lungs clear Neck: No meningismus Cardiac/Chest: regular rate, rhythm Extremities: No swelling Abdomen: normal bowel sounds, non-tender, soft, No distended Skin: No erythema ICD10 Worksheet Patient Problems: Problems Problem Status Onset Fever and chills Acute Rhabdomyolysis Acute Vomiting Acute
--- NOTE | 2016-11-03 13:36 | NEUROPROG ---
Assessment: Pt stable clinically but appears to have viral meningitis most likely with encephalitis possible as well, but fully covered with Abx and Acyclovir with PCR and cultures pending. NMS not suspect at this point. 11/03/16: Pt is stable but with recurrent fevers and suspected viral meningitis. Awaiting further testing results, including West Nile Virus. HSV is negative and Acyclovir being stopped. I agree with MRI if all other tests are negative. Subjective: Pt is not reporting much pain. Mother confirms that he seems about the same. Still with fevers. He may have some muscle twitches but a bit less. Objective: Vital Signs Temp Pulse Resp BP Pulse Ox 37.7 C 97 14 118/75 94 11/03/16 11:40 11/03/16 11:40 11/03/16 11:40 11/03/16 11:40 11/03/16 11:40 Microbiology 11/01/16 09:51 Gram Stain - Final Cerebral Spinal Fluid 11/02/16 17:05 Respiratory Panel (PCR) - Final Nasal, Sinus - Swab No Organism Detected Laboratory Results 11/03/16 04:15 11/03/16 04:15 11/02/16 11/03/16 11/04/16 05:59 05:59 05:59 Intake Total 8150 3368 Output Total 2550 1340 Balance 5600 2028 PT 14.2 SEC (12.0-15.0) 11/01/16 04:30 INR 1.11 (0.83-1.16) 11/01/16 04:30 Awake with flat affect which is close to his baseline. Some periods of confusion. No positive infectious source yet. Allergies/Adverse Reactions: No Known Allergies Allergy (Verified 10/31/16 03:14)
--- NOTE | 2016-11-03 17:21 | HOSPPROG ---
Hospitalist Progress Note Assessment/Plan: The patient is a male who was admitted for meningitis. ASSESSMENT/PLAN: Acute lymphocytic meningitis Sepsis, resolved Rhabdomyolysis, improved Diarrhea Dehydration, improved Schizophrenia Non anion gap metabolic acidosis, mild -infectious Disease and Neurology following-Alvin appreciated. -patient received antiviral medication. It is being discontinued today. -pending viral studies. -IV fluids -physical therapy and occupational therapy -VT prophylaxis-Lovenox ____ SUBJECTIVE: Today patient feels okay. He has a headache. OBJECTIVE: Physical Exam: General: The patient is a male who is alert and in no acute distress. HEENT: normocephalic, extraocular movements intact, conjunctivae clear. Mucous membranes moist. Neck: trachea midline, no visible masses. CV: +S1/S2, RRR, no MRG. Resp: unlabored, CTAB no RRW. Abd: soft and nondistended. Bowel sounds present. Musculoskeletal: Normal muscle tone/bulk. Neuro: cranial nerves II XII grossly intact. Intact gross motor and sensory function. Psych: Depressed mood and flat affect. Skin: No pallor. No petechiae. Heme/lymph: No peripheral edema at bilateral lower legs. Labs/Imaging/Other Tests: Personally reviewed/interpreted. Objective: Vital Signs Temp Pulse Resp BP Pulse Ox 37.4 C 88 16 112/73 95 11/03/16 16:00 11/03/16 16:00 11/03/16 16:00 11/03/16 16:00 11/03/16 16:00 Microbiology 11/01/16 09:51 Gram Stain - Final Cerebral Spinal Fluid 11/02/16 17:05 Respiratory Panel (PCR) - Final Nasal, Sinus - Swab No Organism Detected Laboratory Results 11/03/16 04:15 11/03/16 04:15 11/02/16 11/03/16 11/04/16 05:59 05:59 05:59 Intake Total 8150 3368 1500 Output Total 2550 1340 Balance 5600 2028 1500 PT 14.2 SEC (12.0-15.0) 11/01/16 04:30 INR 1.11 (0.83-1.16) 11/01/16 04:30 ICD10 Worksheet Patient Problems: Problems Problem Status Onset Fever and chills Acute Rhabdomyolysis Acute Vomiting Acute
[2016-11-03] MEDS: DIAZEPAM 2 MG TAB PO SCH (21:04)
[2016-11-03] MEDS: ACETAMINOPHEN 325 MG TAB PO PRN (21:11)
[2016-11-03 23:39] LABS: MISCELLANEOUS TEST See Comments
[2016-11-04] MEDS: NS 1,000 ML IV SCH ×3 (03:30→18:23)
[2016-11-04 05:02] LABS: % IMMATURE GRANULYOCYTES 0.2 % (0.0-1.1); ABSOLUTE IMMATURE GRANULOCYTES 0.02 10^3/uL (0.00-0.10); ADD DIFF? NO; ADD MORPH? NO; ADD SCAN? NO; ATYPICAL LYMPHOCYTE FLAG 90 (0-99); FRAGMENT RBC FLAG 0 (0-99); HEMATOCRIT 32.9 % (40.0-51.0); HEMOGLOBIN 11.2 g/dL (13.7-17.5); LEFT SHIFT FLG 10 (0-99); LIPEMIA HEMOLYSIS FLAG 90 (0-99); MEAN CELL HEMOGLOBIN 31.7 pg (27.9-34.1); MEAN CELL VOLUME 93.2 fL (81.5-99.8); MEAN PLATELET VOLUME 10.2 fL (8.7-11.7); PLATELET CLUMPS FLAG 10 (0-99); PLATELET COUNT 320 10^3/uL (150-400); RED BLOOD CELL COUNT 3.53 10^6/uL (4.40-6.38); RED CELL DISTRIBUTION WIDTH 14.3 % (11.5-15.2)
[2016-11-04 05:18] LABS: ANION GAP 7 mEq/L (8-16); CALCIUM 8.5 mg/dL (8.5-10.4); CARBON DIOXIDE 21 mEq/l (22-31); CHLORIDE 110 mEq/L (97-110); CREATININE 0.7 mg/dL (0.7-1.3); GLOMERULAR FILTRATION RATE > 60; GLUCOSE 91 mg/dL (70-100); POTASSIUM 4.2 mEq/L (3.5-5.2); SODIUM 138 mEq/L (134-144)
[2016-11-04 09:27] LABS: ANTI EBNA Positive (Negative); ANTI VCA/IgG Positive (Negative); ANTI VCA/IgM Negative (Negative)
[2016-11-04] MEDS: ASPIRIN 81 MG CHEWABLE TAB PO SCH (09:39)
[2016-11-04] MEDS: cloZAPine 100 MG TAB PO SCH ×2 (09:39→20:19)
[2016-11-04] MEDS: HALOPERIDOL 10 MG TAB PO SCH ×2 (09:39→20:19)
[2016-11-04] MEDS: carBAMazepine 200 MG TAB PO SCH ×2 (09:39→20:19)
[2016-11-04] MEDS: ENOXAPARIN 40 MG/0.4 ML SYR SC SCH (09:40)
[2016-11-04 10:37] LABS: CMVRU RESULT Negative (Negative); CMVRU SPECIMEN SOURCE CSF
--- NOTE | 2016-11-04 10:54 | WOCRNPDOC ---
WOCRN Advanced Assessment Note - Skin Integrity Problem, Advanced Assess Left Medial Ankle Dressing Type: Open to Air Exudate Amount: None Exudate Characteristic(s): None Nevin Wound Tissue: Dry, Calloused Nevin Wound Swelling: None Wound Bed Color: Brown Wound Bed Constitution: Scab Skin Integrity Problem Comment: Dry, calloused area noted on L medial malleolus w/ small intact scab medially. Per patient's mother, patient developed a wound at this site as the result of friction from a cast. Site appears to be healing well, w/ no need for advanced wound care. Recommendation is to apply a small, padded foam dressing over this site to prevent any further injury from friction when patient ambulates in walking boot. No need for wound care to follow ongoing. Report given to economic historian Zach.
--- NOTE | 2016-11-04 15:22 | PCMIDPN ---
Assessment/Plan: Assessment/Plan: 1. Lymphocytic Meningitis: - Uncertain etiology, likely viral -Following studies so far negative: CSF HSV DNA, VZV, Enterovirus, respiratory PCR, blood cx, CSF cultures no growth at 48 hours, cmv neg, EBV show past exposure. -Pending studies: WNV - wbc trending down, creatinine and LFT stable. -Consider brain imaging especially if work up negative and if patient not continuing to improve. -Reviewed results and plan of care with Mom and patient. MEds acyclovir---d/c'd 11/03/16 Subjective: AFebrile. feels better. walking in hallways. headache is better. less neck pain. denies sob, abd pain or diarrhea. mom at bedside. Objective: Vital Signs Temp Pulse Resp BP Pulse Ox 36.8 C 80 20 119/79 98 11/04/16 11:49 11/04/16 11:49 11/04/16 11:49 11/04/16 11:49 11/04/16 11:49 Microbiology 11/01/16 09:51 Gram Stain - Final Cerebral Spinal Fluid CSF Culture - Final Laboratory Results 11/04/16 04:31 11/04/16 04:31 11/03/16 11/04/16 11/05/16 05:59 05:59 05:59 Intake Total 3368 4212 1276 Output Total 5184 206 2314 Balance 8 3812 -24 C-Reactive Protein 5.6 mg/L (<10.0) 10/30/16 23:30 - Physical Exam General Appearance: alert, no apparent distress Respiratory: lungs clear Cardiac/Chest: regular rate, rhythm Extremities: No swelling Abdomen: normal bowel sounds, non-tender, soft, No distended ICD10 Worksheet Patient Problems: Problems Problem Status Onset Fever and chills Acute Rhabdomyolysis Acute Vomiting Acute
--- NOTE | 2016-11-04 18:52 | NEUROPROG ---
Assessment: Pt stable clinically but appears to have viral meningitis most likely with encephalitis possible as well, but fully covered with Abx and Acyclovir with PCR and cultures pending. NMS not suspect at this point. 11/03/16: Pt is stable but with recurrent fevers and suspected viral meningitis. Awaiting further testing results, including West Nile Virus. HSV is negative and Acyclovir being stopped. I agree with MRI if all other tests are negative. 11/04/16: Pt is stable and no additional acute neurologic issues but please call if further input is needed. Dr. Lara is on tomorrow but will see only if more input is needed. Objective: Vital Signs Temp Pulse Resp BP Pulse Ox 37.2 C 92 16 104/66 96 11/04/16 16:00 11/04/16 16:00 11/04/16 16:00 11/04/16 16:00 11/04/16 16:00 Microbiology 11/01/16 09:51 Gram Stain - Final Cerebral Spinal Fluid CSF Culture - Final Laboratory Results 11/04/16 04:31 11/04/16 04:31 11/03/16 11/04/16 11/05/16 05:59 05:59 05:59 Intake Total 3368 4212 4014 Output Total 5694 285 8652 Balance 2028 3812 939 PT 14.2 SEC (12.0-15.0) 11/01/16 04:30 INR 1.11 (0.83-1.16) 11/01/16 04:30 Allergies/Adverse Reactions: No Known Allergies Allergy (Verified 10/31/16 03:14)
--- NOTE | 2016-11-04 18:53 | HOSPPROG ---
Hospitalist Progress Note Assessment/Plan: The patient is a male who was admitted for meningitis. ASSESSMENT/PLAN: Acute lymphocytic meningitis, unk virus Sepsis, resolved Rhabdomyolysis, improved Diarrhea, resolved Dehydration, resolved Schizophrenia Non anion gap metabolic acidosis, mild, hyperchloremic Anemia, mild -infectious Disease and Neurology following-Recs appreciated. -patient received antiviral medication. It has been DC'd. -pending WNV result. Other studies negative -Change IVF from NS to D5 half NS for hyperchloremia. -PT/OT -VT prophylaxis-Lovenox DISPO: Med Surg ____ SUBJECTIVE: Today patient feels okay. He feels a little better. Walked around the floor x 2 laps. Mother at bedside. OBJECTIVE: Physical Exam: General: The patient is a male who is alert and in no acute distress. HEENT: normocephalic, extraocular movements intact, conjunctivae clear. Mucous membranes moist. Neck: trachea midline, no visible masses. CV: +S1/S2, RRR, no MRG. Resp: unlabored, CTAB no RRW. Abd: soft and nondistended. Bowel sounds present. Musculoskeletal: Normal muscle tone/bulk. Neuro: cranial nerves II XII grossly intact. Intact gross motor and sensory function. Psych: Appropriate mood and flat affect. Skin: No pallor. No petechiae. Heme/lymph: No peripheral edema at bilateral lower legs. Labs/Imaging/Other Tests: Personally reviewed/interpreted. Objective: Vital Signs Temp Pulse Resp BP Pulse Ox 37.2 C 92 16 104/66 96 11/04/16 16:00 11/04/16 16:00 11/04/16 16:00 11/04/16 16:00 11/04/16 16:00 Microbiology 11/01/16 09:51 Gram Stain - Final Cerebral Spinal Fluid CSF Culture - Final Laboratory Results 11/04/16 04:31 11/04/16 04:31 11/03/16 11/04/16 11/05/16 05:59 05:59 05:59 Intake Total 3368 4212 4014 Output Total 1047 561 2396 Balance 2027 3812 939 PT 14.2 SEC (12.0-15.0) 11/01/16 04:30 INR 1.11 (0.83-1.16) 11/01/16 04:30 ICD10 Worksheet Patient Problems: Problems Problem Status Onset Fever and chills Acute Rhabdomyolysis Acute Vomiting Acute
[2016-11-04] MEDS: DIAZEPAM 2 MG TAB PO SCH (20:19)
[2016-11-04] MEDS: cloZAPine 25 MG TAB PO SCH (20:19)
[2016-11-04 20:22] LABS: CK-MB INTERPRETATION NEGATIVE (NEGATIVE); CREATINE KINASE-MB FRACTION 1.18 ng/mL (0-3.19)
[2016-11-04] MEDS ORDERED: D5W 1/2 NS 1,000 ML IV SCH (21:45)
[2016-11-05 05:05] LABS: HEMATOCRIT 33.1 % (40.0-51.0); HEMOGLOBIN 11.1 g/dL (13.7-17.5); MEAN CELL HEMOGLOBIN 31.4 pg (27.9-34.1); MEAN CELL HEMOGLOBIN CONCENTR. 33.5 g/dL (32.4-36.7); MEAN CELL VOLUME 93.8 fL (81.5-99.8); RED BLOOD CELL COUNT 3.53 10^6/uL (4.40-6.38); RED CELL DISTRIBUTION WIDTH 14.3 % (11.5-15.2)
[2016-11-05] MEDS: ASPIRIN 81 MG CHEWABLE TAB PO SCH (08:21)
[2016-11-05] MEDS: carBAMazepine 200 MG TAB PO SCH ×2 (08:21→20:51)
[2016-11-05] MEDS: cloZAPine 100 MG TAB PO SCH ×2 (08:22→20:51)
[2016-11-05] MEDS: ENOXAPARIN 40 MG/0.4 ML SYR SC SCH (08:22)
[2016-11-05] MEDS: HALOPERIDOL 10 MG TAB PO SCH ×2 (08:23→20:51)
--- NOTE | 2016-11-05 10:36 | PCMIDPN ---
Assessment/Plan: Assessment/Plan: 1. Lymphocytic Meningitis: - Uncertain etiology, likely viral -Following studies so far negative: CSF HSV DNA, VZV, Enterovirus, respiratory PCR, blood cx, CSF cultures no growth at 48 hours, cmv neg, EBV show past exposure. -Pending studies: WNV. -Called lab to see why WNV has not been resulted yet. Apparently specimen was not labeled properly thus [facility] laboratory did not run test. They only run test on Tuesdays and , so now the test will be run tomorrow. Apparently it will take 4-8 days to get results back per lab. - wbc trending down, creatinine and LFT stable.Cpk improving. -Reviewed results and plan of care with Mom and patient. -MRi pending. -CAre coordinated with Dr. Holloway. MEds acyclovir---d/c'd 11/03/16 Subjective: Resting in bed. intermittent low grade temps. denies headache or neck pain today. Walking some in hallways. Denies sob, abd pain or diarrhea. mom at bedside. Objective: Vital Signs Temp Pulse Resp BP Pulse Ox 37 C 83 16 108/69 95 11/05/16 08:00 11/05/16 08:00 11/05/16 08:00 11/05/16 08:00 11/05/16 08:00 Microbiology 11/01/16 09:51 Gram Stain - Final Cerebral Spinal Fluid CSF Culture - Final Laboratory Results 11/05/16 04:21 11/04/16 04:31 11/04/16 11/05/16 11/06/16 05:59 05:59 05:59 Intake Total 4212 4014 Output Total 400 3675 Balance 3812 339 C-Reactive Protein 5.6 mg/L (<10.0) 10/30/16 23:30 - Physical Exam General Appearance: alert, no apparent distress Respiratory: lungs clear Neck: No meningismus Cardiac/Chest: regular rate, rhythm Extremities: No swelling Abdomen: normal bowel sounds, non-tender, soft, No distended ICD10 Worksheet Patient Problems: Problems Problem Status Onset Fever and chills Acute Rhabdomyolysis Acute Vomiting Acute
--- NOTE | 2016-11-05 16:56 | HOSPPROG ---
Hospitalist Progress Note Assessment/Plan: Assessment: 31 yo M p/w sepsis and rhabdomyolysis found to be 2/2 viral meningitis Plan: # viral meningitis: LP with elevated WBC as well as RBC c/w acute viral, lymphocytic meningitis - off abx and acyclovir - d/w Dr. Lara, she reports HSV was delayed in processing and should be available in 4-8 days, no acyclovir in interim - MRI recommended by neuro, ordering w/ contrast to r/o other processes # sepsis: poa, afebrile 48hrs, cont monitor CBC # rhabdomyolysis: in setting of viral illness, CPK downtrended w/ IVF # seizure d/o: continue op medications, per family has not had seizure in a long time, nothing by history to suggest recurrent seizure # schizophrenia: chronic, with complications of EPS and Parkinsonian sxs on current medication that include clozaril and haldol but otherwise psychosis improved significantly diet. regular ppx. high risk, lovenox 40 code. full dispo. ADD 11/06, pending no significant MRI findings Subjective: patient reports no headache or neck pain Objective: Vital Signs Temp Pulse Resp BP Pulse Ox 36.6 C 89 16 116/78 98 11/05/16 16:00 11/05/16 16:00 11/05/16 16:00 11/05/16 16:00 11/05/16 16:00 Laboratory Results 11/05/16 04:21 11/04/16 04:31 11/04/16 11/05/16 11/06/16 05:59 05:59 05:59 Intake Total 4212 4014 Output Total 400 3675 Balance 3812 339 PT 14.2 SEC (12.0-15.0) 11/01/16 04:30 INR 1.11 (0.83-1.16) 11/01/16 04:30 - Pending Discharge Pending Discharge Within 24 Hours: Yes Pending Discharge Date: 11/06/16 Pending Discharge Time: 11:00 - Physical Exam Constitutional: no apparent distress, appears nourished, not in pain, No uncomfortable Cardiovascular: regular rate and rhythym, no murmur, rub, or gallop, No edema Respiratory: no respiratory distress, no rales or rhonchi, clear to auscultation , No respiratory distress Gastrointestinal: normoactive bowel sounds, soft, non-tender abdomen, no palpable masses Neurologic: sensation intact bilaterally, other (AAOx2 (person and place, not time)), No weakness Psychiatric: not anxious, flat affect, other (cooperative and follows commands) , No agitated ICD10 Worksheet Patient Problems: Problems Problem Status Onset Fever and chills Acute Rhabdomyolysis Acute Vomiting Acute
[2016-11-05] MEDS ORDERED: GADOBUTROL 10 ML VIAL IVP ONE (18:16)
[2016-11-05] MEDS: DIAZEPAM 2 MG TAB PO SCH (20:51)
[2016-11-05] MEDS: cloZAPine 25 MG TAB PO SCH (20:51)
[2016-11-06 05:11] LABS: ADD MORPH? NO; ADD SCAN? YES; FRAGMENT RBC FLAG 0 (0-99); HEMATOCRIT 33.3 % (40.0-51.0); HEMOGLOBIN 11.2 g/dL (13.7-17.5); LEFT SHIFT FLG 10 (0-99); LIPEMIA HEMOLYSIS FLAG 80 (0-99); MEAN CELL HEMOGLOBIN 31.8 pg (27.9-34.1); MEAN CELL HEMOGLOBIN CONCENTR. 33.6 g/dL (32.4-36.7); MEAN CELL VOLUME 94.6 fL (81.5-99.8); MEAN PLATELET VOLUME 10.1 fL (8.7-11.7); PLATELET CLUMPS FLAG 30 (0-99); PLATELET COUNT 364 10^3/uL (150-400); RED BLOOD CELL COUNT 3.52 10^6/uL (4.40-6.38); RED CELL DISTRIBUTION WIDTH 14.4 % (11.5-15.2)
[2016-11-06 05:12] LABS: ATYPICAL LYMPHOCYTE FLAG 100 (0-99)
[2016-11-06 05:37] LABS: ALANINE AMINOTRANSFERASE 40 IU/L (21-72); ALBUMIN 3.1 g/dL (3.5-5.0); ALKALINE PHOSPHATASE 42 IU/L (38-126); ANION GAP 10 mEq/L (8-16); ASPARTATE AMINOTRANSFERASE 25 IU/L (17-59); BILIRUBIN,TOTAL 0.3 mg/dL (0.1-1.4); CALCIUM 9.6 mg/dL (8.5-10.4); CARBON DIOXIDE 23 mEq/l (22-31); CHLORIDE 106 mEq/L (97-110); CREATININE 0.8 mg/dL (0.7-1.3); GLOMERULAR FILTRATION RATE > 60; GLUCOSE 90 mg/dL (70-100); POTASSIUM 4.6 mEq/L (3.5-5.2); SODIUM 139 mEq/L (134-144); TOTAL PROTEIN 5.6 g/dL (6.3-8.2)
[2016-11-06 05:52] LABS: ADD DIFF? YES; SCAN POSITIVE
[2016-11-06 05:57] LABS: PLATELET ESTIMATE ADEQUATE (ADEQ)
[2016-11-06 08:00] VITALS: BP 103/70; PULSE 73; RESP 18; TEMP 98.6; O2SAT 93
[2016-11-06] MEDS: carBAMazepine 200 MG TAB PO SCH (09:57)
[2016-11-06] MEDS: cloZAPine 100 MG TAB PO SCH (09:57)
[2016-11-06] MEDS: ENOXAPARIN 40 MG/0.4 ML SYR SC SCH (09:57)
[2016-11-06] MEDS: HALOPERIDOL 10 MG TAB PO SCH (09:57)
[2016-11-06] MEDS: ASPIRIN 81 MG CHEWABLE TAB PO SCH (09:57)
--- NOTE | 2016-11-06 11:13 | PCMIDPN ---
Assessment/Plan: Assessment/Plan: 1. Lymphocytic Meningitis: - Uncertain etiology, likely viral -Following studies so far negative: CSF HSV DNA, VZV, Enterovirus, respiratory PCR, blood cx, CSF cultures no growth at 48 hours, cmv neg, EBV show past exposure. -Pending studies: WNV. -Called lab to see why WNV has not been resulted yet. Apparently specimen was not labeled properly thus [facility] laboratory did not run test. They only run test on Tuesdays and , so now the test will be run Saturday. Apparently it will take 4-8 days to get results back per lab. - wbc slightly up today. did have low grade temp yesterday. Patient asymptomatic. Will need f/u blood work done. mom/patient advised that if patient develops worsening symptoms, that they should contact our office or go to ER. they expressed understanding. -Reviewed results and plan of care with Mom and patient. -MRi brain unremarkable. -CAre coordinated with Dr. Holloway. -f/u appt set up for Saturday. MEds acyclovir---d/c'd 11/03/16 Subjective: patient alert, answering questions, following commands. mom at bedside. see with Dr. Holloway. Patient denies headaches, shortness of breath, abd pain, dysuria, diarrhea, joint pains etc. He is walking hallways. states he feels steady on feet. mom reports dry cough. pt denies neck pian or stiffness. Objective: Vital Signs Temp Pulse Resp BP Pulse Ox 37.0 C 73 18 103/70 93 11/06/16 07:59 11/06/16 07:59 11/06/16 07:59 11/06/16 07:59 11/06/16 07:59 Microbiology 10/31/16 20:15 Blood Culture - Final Blood 10/31/16 20:00 Blood Culture - Final Blood Laboratory Results 11/06/16 04:27 11/06/16 04:27 11/05/16 11/06/16 11/07/16 05:59 05:59 05:59 Intake Total 4014 860 Output Total 3675 1000 Balance 339 -140 C-Reactive Protein 5.6 mg/L (<10.0) 10/30/16 23:30 - Physical Exam General Appearance: alert, no apparent distress Respiratory: lungs clear Cardiac/Chest: regular rate, rhythm Extremities: No swelling Abdomen: normal bowel sounds, non-tender, soft, No distended Skin: No erythema ICD10 Worksheet Patient Problems: Problems Problem Status Onset Fever and chills Acute Rhabdomyolysis Acute Vomiting Acute
[2016-11-06 13:49] LABS: INTERPRETATION See Comments; WEST NILE VIRUS IGG Positive (Negative); WEST NILE VIRUS IGM Positive (Negative)
--- NOTE | 2016-11-06 16:18 | PDDCSUM ---
Discharge Summary Discharge Summary: DISCHARGE SUMMARY FOLLOW-UP ITEMS: Outpatient infectious disease follow-up, CBC prior to that appointment DATE OF ADMISSION: 10/30/2016 DATE OF DISCHARGE: 11/06/2016 DISCHARGE DIAGNOSES: 1. Acute West Nile virus meningitis 2. Sepsis present on admission 3. Acute rhabdomyolysis 4. Chronic schizophrenia 5. Acute hyponatremia 6. Acute kidney injury CONSULTATIONS: Infectious Disease PROCEDURES / IMAGING: MRI demonstrating no abnormalities CHIEF COMPLAINT: Acute fever SUBJECTIVE: Patient is feeling well at time of discharge PHYSICAL EXAM ON DISCHARGE: Systolic blood pressure 120, afebrile overnight, satting well on room air, alert awake oriented x3, flat affect, no meningismus on exam, lungs are clear to auscultation bilaterally, heart rate and rhythm are regular, no lower extremity edema, abdomen is soft nontender nondistended LABS ON DISCHARGE: White blood cell count 87629, hemoglobin 11.2, creatinine 0.8, potassium 4.6, liver panel unremarkable, CPK 600 HOSPITAL COURSE BY PROBLEM: 1. West Nile virus meningitis. The patient presented with a fever and systemic symptoms consistent with meningitis, confirmed by lumbar puncture demonstrating lymphocyte predominant pleocytosis and positive West Nile virus IgG and IgM. Patient responded to supportive care and he is currently asymptomatic at time of discharge. As mentioned above, he had an MRI which demonstrated no abnormal enhancement. He did have mild leukocytosis at time of discharge, this will be followed up as an outpatient in the Infectious Disease Clinic next week. 2. Sepsis. Present on admission, evidenced by autonomic dysregulation in the setting of infection including significant leukocytosis, tachycardia, tachypnea , fever, clearly identified source of infection, end-organ failure including acute kidney injury. All the patient's sepsis markers improved, and he is stable at time of discharge. 3. Acute hyponatremia. Secondary to hypovolemia in the setting of infection, this improved with normal saline. 4. Acute kidney injury. Evidenced by creatinine level of 1.2 on presentation, secondary to hypovolemia and autonomic dysregulation in the setting of infection. Received IV fluids his creatinine level stabilized. 5. Acute rhabdomyolysis. Secondary to immobility in the setting of meningitis, patient's peak CPK was around 3200, this improved with IV fluids. 6. Chronic schizophrenia. Patient did not demonstrate any stabilization, he was continued on his home medications, he will return home to be cared for by his mother. DISCHARGE MEDICATIONS: Please see official discharge medication reconciliation sheet in chart , as needed Tylenol and ibuprofen, continue all other home medications. DISCHARGE INSTRUCTIONS: Please follow up with the Infectious Disease Clinic next week. TIME SPENT: Greater than 30 minutes were spent on direct patient care, as well as discharge planning and preparation.
== END 2016-11-06 11:52 | disposition home or self-care (01) | DRG 871 ==
LOC: CED 22:48 → CEDHOLD 10-31 02:01 → F2W 10-31 04:06 → OBSVTOIN 10-31 17:29 → F3E 11-02 18:18
PROVIDERS: ADMIT Student in an Organized Health Care Education/Training Program; ATTEND Student in an Organized Health Care Education/Training Program
PROC: 009U3ZX Drainage of Spinal Canal, Percutaneous Approach, Diagnostic (ICD-10-PCS; principal; 2016-11-01)
DX: A41.89 Other specified sepsis (principal); A92.32 West Nile virus infection with other neurologic manifestation; A87.8 Other viral meningitis; N17.9 Acute kidney failure, unspecified; M62.82 Rhabdomyolysis; F20.5 Residual schizophrenia; E87.1 Hypo-osmolality and hyponatremia; F81.9 Developmental disorder of scholastic skills, unspecified; G40.909 Epilepsy, unspecified, not intractable, without status epilepticus
CPT/HCPCS: 71020-PO; 71275-PO; 74177-PO; 80048-PO; 80076-PO; 81003-PO; 81015-PO; 82550-PO; 82553-PO; 82947-QW; 83605-PO; 84484-PO; 85025-PO; 85378-PO; 86664-90; 86665-90; 86787-90; 87496-90; 87798-90; 87880-PO; 96374; 97116-GP; 97162-GP; 97166-GO; 97530-GO; 97535-GO; A9585; G8978-GP-CI; G8979-GP-CH; G8987-GO-CJ; G8988-GO-CI; J0133; J0696; J1650; J2405; J3370; Q9967